=== PATIENT | female | born 1980 | race Caucasian/White ===

== ENCOUNTER 2016-06-27 09:15 | Emergency (ER) | payer MEDICAID ==
[~2016-06-27] VITALS: Ht 162.6 cm; Wt 89.0 kg
[~2016-06-27 09:15] MED LIST: CIPR500T4 PO; HYDR-3498 PO; IBUP800T25 PO; LOPE2CAP PO; METF500T4 PO; ONDA-43 PO; ONDA4TAB8 PO; RANI150T9 PO; SODI44SP11 NS
[2016-06-27 09:26] VITALS: Ht 162.6 cm; Wt 89.0 kg
== END 2016-06-27 11:16 | disposition left against medical advice (07) ==
LOC: FTE 09:15
DX: Z53.21 Procedure and treatment not carried out due to patient leaving prior to being seen by health care provider (principal)

== ENCOUNTER 2018-02-05 06:41 | Emergency (ER) | END 2018-02-05 08:24 | disposition home or self-care (01) ==

== ENCOUNTER 2018-06-10 17:34 | Emergency (ER) | payer SELFPAY ==
[~2018-06-10] VITALS: Ht 157.5 cm; Wt 87.8 kg
[~2018-06-10 17:34] MED LIST changes: +CETI10CA PO; +GUAI5SYR2 PO; +IBUP-1542 PO; +IBUP-1545 PO; -IBUP800T25 PO; +IBUP800T48 PO; +METF-849 PO; -METF500T4 PO; -ONDA-43 PO; +ONDA4TAB13 PO; +RANI150T35 PO; -RANI150T9 PO
[2018-06-10 18:00] VITALS: BP 138/66; PULSE 85; RESP 18; Ht 157.5 cm; Wt 87.8 kg
== END 2018-06-10 22:21 | disposition left against medical advice (07) ==
LOC: FTE 17:34
DX: Z53.21 Procedure and treatment not carried out due to patient leaving prior to being seen by health care provider (principal)

== ENCOUNTER 2018-06-24 16:32 | Emergency (ER) | payer SELFPAY | END 2018-06-24 17:18 | disposition left against medical advice (07) | LOC: E/R 16:32 | DX: Z53.21 Procedure and treatment not carried out due to patient leaving prior to being seen by health care provider (principal) ==